=== PATIENT | female | born 1960 | race Caucasian/White ===

== ENCOUNTER 2016-11-17 08:02 | Emergency (ER) | payer BC ==
[2016-11-17 09:45] VITALS: BP 155/78
== END 2016-11-17 09:45 | disposition home or self-care (01) ==
LOC: ED 08:02
DX: L50.0 Allergic urticaria (principal); E11.9 Type 2 diabetes mellitus without complications; I10 Essential (primary) hypertension; E78.00 Pure hypercholesterolemia, unspecified; E66.9 Obesity, unspecified; Z88.1 Allergy status to other antibiotic agents; Z88.8 Allergy status to other drugs, medicaments and biological substances
CPT/HCPCS: J1200; J2930

== ENCOUNTER 2016-11-19 09:45 | Emergency (ER) | payer BC ==
[2016-11-19 11:22] VITALS: BP 126/74
== END 2016-11-19 11:22 | disposition home or self-care (01) ==
LOC: ED 09:45
DX: T78.40XA Allergy, unspecified, initial encounter (principal); R21 Rash and other nonspecific skin eruption; E11.9 Type 2 diabetes mellitus without complications; I10 Essential (primary) hypertension; E78.00 Pure hypercholesterolemia, unspecified; Z88.1 Allergy status to other antibiotic agents; Z88.8 Allergy status to other drugs, medicaments and biological substances; X58.XXXA Exposure to other specified factors, initial encounter
CPT/HCPCS: J1200; J2930; J3490